=== PATIENT | female | born 1995 | race Caucasian/White ===

== ENCOUNTER 2017-11-22 01:49 | Inpatient (IN) | payer OTHER ==
[~2017-11-22] VITALS: Ht 175.3 cm; Wt 79.8 kg
[~2017-11-22 01:49] MED LIST: PRENAISSANCE 91 EACH PO
--- NOTE | 2017-11-23 13:25 | PR ---
[facility] [address] [facility] [place], [place] [address] Signed PP Progress Notes Datetime Report Generated by CPN: 11/23/2017 13:25 SUBJECTIVE: [id number] Pain: Within normal limits Nausea/Vomiting: Denies Flatus: Yes Bowel Movement: Yes Vital Signs: [id number] Vital Signs: Reviewed; Within Normal Limits EXAM: [id number] Cardiovascular: Normal Respiratory: Normal Abdomen/Uterus: Normal Lochia: Normal Vulva/Perineum: Normal Breasts: Normal CVA Tenderness: Normal Extremities: Normal Incision: Not Applicable Progress: Normal IMPRESSION/PLAN/PROCEDURES: [id number] Impression: Normal progression Plan: Continue present management Procedures: None Progress Notes: patient doing well. GBS positive Signing Physician: Mer Demarco MD Copies: ~ *Electronically Signed* 11/23/17 1325 MER DEMARCO MD PATIENT NAME: SHIRLEY HAIR [facility] PROGRESS NOTE DATE OF : 93 PHYSICIAN: MER DEMARCO MD RPT #: [id number] REPORT IS CONFIDENTIAL AND NOT TO BE RELEASED WITHOUT AUTHORIZATION
--- NOTE | 2017-11-24 08:35 | PR ---
[facility] [address] [facility] [place], [place] [address] Signed PP Progress Notes Datetime Report Generated by CPN: 11/24/2017 08:35 SUBJECTIVE: [id number] Pain: Within normal limits Nausea/Vomiting: Denies Flatus: Yes Bowel Movement: Yes Vital Signs: [id number] Vital Signs: Reviewed; Within Normal Limits EXAM: [id number] Cardiovascular: Normal Respiratory: Normal Abdomen/Uterus: Normal Lochia: Normal Vulva/Perineum: Normal Breasts: Normal CVA Tenderness: Normal Extremities: Normal Incision: Not Applicable Progress: Normal IMPRESSION/PLAN/PROCEDURES: [id number] Impression: Normal progression Plan: Discharge Procedures: None Progress Notes: GBS pos. patient doing well. baby doing well. ok for d/c home Signing Physician: Mer Demarco MD Copies: ~ *Electronically Signed* 11/24/17 0835 MER DEMARCO MD PATIENT NAME: SHIRLEY HAIR [facility] PROGRESS NOTE DATE OF : 93 PHYSICIAN: MER DEMARCO MD RPT #: [id number] REPORT IS CONFIDENTIAL AND NOT TO BE RELEASED WITHOUT AUTHORIZATION
== END 2017-11-24 12:10 | disposition home or self-care (01) | DRG 775 ==
LOC: FBCO 01:49 → FBC 01:58
PROVIDERS: ADMIT Obstetrics & Gynecology
PROC: 10E0XZZ Delivery of Products of Conception, External Approach (ICD-10-PCS; principal; 2017-11-22)
DX: O42.02 Full-term premature rupture of membranes, onset of labor within 24 hours of rupture (principal); Z3A.39 39 weeks gestation of pregnancy; Z37.0 Single live birth; O99.824 Streptococcus B carrier state complicating childbirth
CPT/HCPCS: 36415; 85027; J1885; J2540; J2590; J7120

== ENCOUNTER 2019-01-05 17:17 | Emergency (ER) | payer OTHER ==
[~2019-01-05] VITALS: Ht 175.3 cm; Wt 79.8 kg
== END 2019-01-05 18:00 | disposition home or self-care (01) ==
LOC: ED 17:17
DX: L98.9 Disorder of the skin and subcutaneous tissue, unspecified (principal); B95.62 Methicillin resistant Staphylococcus aureus infection as the cause of diseases classified elsewhere; Z88.2 Allergy status to sulfonamides
CPT/HCPCS: 99282

== ENCOUNTER 2020-04-28 17:42 | Inpatient (IN) | payer OTHER ==
[~2020-04-28] VITALS: Ht 172.7 cm; Wt 80.7 kg
--- NOTE | 2020-04-29 14:05 | PR ---
[facility] [address] [facility] [place] [address] Signed PP Progress Notes Datetime Report Generated by CPN: 04/29/2020 14:05 SUBJECTIVE: [id number] Pain: Within Normal Limits Nausea/Vomiting: Denies Vital Signs: [id number] Vital Signs: Reviewed; Within Normal Limits EXAM: Ongoing Abdomen/Uterus: Normal Lochia: Normal Extremities: Normal IMPRESSION/PLAN/PROCEDURES: [id number] Impression: Normal Progression Plan: Continue Present Management Procedures: None Progress Notes: Doing well, without complaint. Tolerating pain with usual Subutex and additional Ibuprofen. Signing Physician: Dwaine Dutta MD Copies: ~ *Electronically Signed* 04/29/20 1405 DWAINE DUTTA MD PATIENT NAME: SHIRLEY HAIR [facility] PROGRESS NOTE DATE OF : 93 PHYSICIAN: DWAINE DUTTA MD RPT #: [id number] REPORT IS CONFIDENTIAL AND NOT TO BE RELEASED WITHOUT AUTHORIZATION
--- NOTE | 2020-04-30 12:51 | PR ---
[facility] [address] [facility] [place] [address] Signed PP Progress Notes Datetime Report Generated by CPN: 04/30/2020 12:51 SUBJECTIVE: [id number] Pain: Within Normal Limits Nausea/Vomiting: Denies Vital Signs: [id number] Vital Signs: Reviewed; Within Normal Limits Notable Details: PP Hgb/Hct = 11.3/34.4 EXAM: Ongoing Abdomen/Uterus: Normal Lochia: Normal Extremities: Normal IMPRESSION/PLAN/PROCEDURES: [id number] Impression: Normal Progression Plan: Continue Present Management Procedures: None Progress Notes: Doing well, without complaint Signing Physician: Dwaine Dutta MD Copies: ~ *Electronically Signed* 04/30/20 1251 DWAINE DUTTA MD PATIENT NAME: SHIRLEY HAIR [facility] PROGRESS NOTE DATE OF : 93 PHYSICIAN: DWAINE DUTTA MD RPT #: [id number] REPORT IS CONFIDENTIAL AND NOT TO BE RELEASED WITHOUT AUTHORIZATION
--- NOTE | 2020-05-01 10:05 | PR ---
[facility] [address] [facility] [place] [address] Signed PP Progress Notes Datetime Report Generated by CPN: 05/01/2020 10:05 SUBJECTIVE: [id number] Pain: Within Normal Limits Nausea/Vomiting: Denies Vital Signs: [id number] Vital Signs: Reviewed; Within Normal Limits Notable Details: PP Hgb/Hct = 11.3/34.4 EXAM: Ongoing Abdomen/Uterus: Normal Lochia: Normal Extremities: Normal IMPRESSION/PLAN/PROCEDURES: [id number] Impression: Normal Progression Plan: Discharge Procedures: None Progress Notes: Doing well, without complaint, ready to go home. Signing Physician: Dwaine Dutta MD Copies: ~ *Electronically Signed* 05/01/20 1005 DWAINE DUTTA MD PATIENT NAME: SHIRLEY HAIR [facility] PROGRESS NOTE DATE OF : 93 PHYSICIAN: DWAINE DUTTA MD RPT #: [id number] REPORT IS CONFIDENTIAL AND NOT TO BE RELEASED WITHOUT AUTHORIZATION
== END 2020-05-01 15:27 | disposition home or self-care (01) | DRG 807 ==
LOC: FBC 04-29 00:04
PROVIDERS: ADMIT General Practice
PROC: 10E0XZZ Delivery of Products of Conception, External Approach (ICD-10-PCS; principal; 2020-04-29)
PROC: 00HU33Z Insertion of Infusion Device into Spinal Canal, Percutaneous Approach (ICD-10-PCS; 2020-04-29)
PROC: 3E0R3BZ Introduction of Anesthetic Agent into Spinal Canal, Percutaneous Approach (ICD-10-PCS; 2020-04-29)
DX: O99.824 Streptococcus B carrier state complicating childbirth (principal); Z37.0 Single live birth; Z3A.40 40 weeks gestation of pregnancy; O69.81X0 Labor and delivery complicated by cord around neck, without compression, not applicable or unspecified; O99.324 Drug use complicating childbirth; F11.11 Opioid abuse, in remission; Z86.19 Personal history of other infectious and parasitic diseases; Z88.2 Allergy status to sulfonamides
CPT/HCPCS: 01960; 36415; 85027; A9270; J2001; J2540; J2795